=== PATIENT | male | born 1950 | race Caucasian/White ===

== ENCOUNTER 2017-02-05 11:30 | Day surgery (SDC) | payer OTHER ==
[~2017-02-05] VITALS: Ht 167.6 cm; Wt 71.8 kg
[~2017-02-05 11:30] MED LIST: BENA20TA48 PO
[2017-02-05] MEDS ORDERED: BENAZEPRIL (12:38)
[2017-02-05] MEDS ORDERED: ASPIRIN (12:38)
[2017-02-05] MEDS ORDERED: MIDAZOLAM 1 MG/ML 2 ML INJ ONE ×3 (14:49)
[2017-02-05] MEDS ORDERED: FENTAnyl 50 MCG/ML VIAL ONE (14:49)
[2017-02-05 15:00] VITALS: BP 145/80; RESP 12
--- NOTE | 2017-02-05 16:38 | GILP ---
DATE OF PROCEDURE: 02/05/2017 PROCEDURE PERFORMED: Colonoscopy and polypectomy. SURGEON: Darlyn Sandoval MD. PREOPERATIVE DIAGNOSIS: Positive occult blood in stool. POSTOP DIAGNOSES: 1. Colonoscopy all the way to the cecum. 2. Extensive diverticulosis of the sigmoid colon with adhesions from previous surgery. 3. Sigmoid polyp at 30 cm from the anus was removed using the snare and electrocautery. 4. Another sigmoid polyp at 40 cm from the anus was removed using the biopsy forceps. 5. Internal hemorrhoids. INDICATION: Mr. Nicholas Waller is a 66-year-old male patient was noted to have positive occult blood in stool. The patient was scheduled for colonoscopy for further evaluation. The procedure and possible complications were well explained to the patient. The patient understood and consented to the procedure. DESCRIPTION OF PROCEDURE: Under the influence of fentanyl and Versed, the colonoscope was carefully introduced in the rectum, and under direct vision, it was advanced all the way to the cecum. Findings: The patient had extensive diverticulosis of sigmoid colon. He also had adhesions from previous surgery. He had 2 sigmoid colon polyps, and one of them was removed using the biopsy forceps, and the other one, at 30 cm from the anus, was removed using the snare and electrocautery. The patient was noted to have internal hemorrhoids. He tolerated the procedure very well. There were no complications from the procedure. At the end of procedure, he was awake with stable vital signs. He was discharged home in the care of his family. IMPRESSION: Please see postop diagnoses. PLAN: 1. Await histopathology report. 2. Next screening colonoscopy in 5 years. Dictated By: MD HIEN Goodrich/barb/debbie /Document#: [id number]
== END 2017-02-05 17:38 | disposition home or self-care (01) ==
LOC: GIL 11:30
PROVIDERS: ATTEND Internal Medicine Gastroenterology
DX: R19.4 Change in bowel habit (principal); D12.5 Benign neoplasm of sigmoid colon; K57.90 Diverticulosis of intestine, part unspecified, without perforation or abscess without bleeding; K64.8 Other hemorrhoids; I10 Essential (primary) hypertension
CPT/HCPCS: 45380; 45385; 88305; J2250; J3010; Z7610

== ENCOUNTER 2018-09-26 11:40 | Emergency (ER) | payer MEDICARE, OTHER ==
[~2018-09-26] VITALS: Ht 172.7 cm; Wt 73.2 kg
[~2018-09-26 11:40] MED LIST changes: +ASPIRIN; +BENA20TA4 PO; -BENA20TA48 PO; +BENAZEPRIL
[2018-09-26 11:54] VITALS: BP 130/71; PULSE 78; RESP 18; Ht 172.7 cm; Wt 73.2 kg
--- NOTE | 2018-09-26 14:50 | ERD ---
ER Documentation Chief Complaint Chief Complaint left facial swelling today HPI 68-year-old male, previously healthy, presents the emergency department, complaining of acute onset of painless left facial edema. The patient denies fevers, no chills, no ear pain, no sore throat. The patient states that he was pressing his neck really hard on the left side when he had one episode of near fainting this morning. No chest pain, no palpitations, no shortness of breath. ROS All systems reviewed and are negative except as per history of present illness. Medications Home Meds Active Scripts Ibuprofen* (Motrin*) 400 Mg Tab, 400 MG PO Q8, #15 TAB Prov:VICKI JARRELL MD 09/26/18 Amoxicillin* (Amoxicillin*) 500 Mg Cap, 500 MG PO TID for 7 Days, CAP Prov:VICKI JARRELL MD 09/26/18 Reported Medications [Aspirin] No Conflict Check 02/05/17 [Benazepril] No Conflict Check 02/05/17 Benazepril Hcl* (Benazepril Hcl*) 20 Mg Tablet, 20 MG PO DAILY, TAB 06/14/15 Allergies Allergies: Coded Allergies: No Known Allergy (Unverified , 06/13/15) PMhx/Soc History of Surgery: Yes (APPENDECTOMY) Anesthesia Reaction: No Hx Neurological Disorder: No Hx Respiratory Disorders: No Hx Cardiac Disorders: Yes (HTN, HIGH CHOLESTEROL) Hx Psychiatric Problems: No Hx Miscellaneous Medical Probl: No Hx Alcohol Use: Yes (OCCATIONAL) Hx Substance Use: No Hx Tobacco Use: No FmHx Family History: diabetes Physical Exam Vitals Vital Signs Date Temp Pulse Resp B/P (MAP) Pulse Ox O2 O2 Flow FiO2 Time Delivery Rate 09/26/18 97.5 78 18 130/71 98 11:54 (90) Physical Exam Const: No acute distress Head: Left parotid gland with edema but no tenderness, erythema, warmth or fluctuance. Eyes: Normal Conjunctiva ENT: Normal External Ears, Nose and Mouth. Neck: Full range of motion. No meningismus. Resp: Clear to auscultation bilaterally Cardio: Regular rate and rhythm, no murmurs Abd: Soft, non tender, non distended. Normal bowel sounds Skin: No petechiae or rashes Back: No midline or flank tenderness Ext: No cyanosis, or edema Neur: Awake and alert Psych: Normal Mood and Affect Results 24 hrs EKG read by me: Rate/Rhythm: Regular rate and rhythm at a rate of 60 Intervals: Normal No acute ST changes. No T wave inversion Impression: No evidence of acute ischemia or arrhythmia Procedures/MDM Differential diagnosis include but not limited to: Tonsillar/pharyngeal infection bacterial/viral/fungal, parotitis, allergies, GERD. Less likely peritonsillar abscess, retropharyngeal abscess. No signs of upper respiratory obstruction Physical examination and clinical presentation consistent most likely with sialoadenitis, in regards of the near syncopal episode, normal electrocardiogr am, most likely symptoms were caused by carotid massage. During the ED course the patient remained stable. Clinical impression discussed with the patient who agrees with management. The patient is stable to be treated outpatient and will be discharged home with a Rx for antibiotic and ibuprofen. Some side effects of prescribed medications (headache, rash, nausea, vomiting, diarrhea, drowsiness, habituation, bleeding, hypertension, interactions with other medications) were reviewed. The patient was instructed to follow up with the primary care provider in the next 48h. If symptoms persist, worsen or new symptoms develop, then patient should return to the ED immediately. Disclaimer: Inadvertent spelling and grammatical errors are likely due to EHR/dictation software use and do not reflect on the overall quality of patient care. Also, please note that the electronic time recorded on this note does not necessarily reflect the actual time of the patient encounter. Departure Diagnosis: Primary Impression: Sialadenitis Additional Impression: Vasovagal episode Condition: Stable Additional Instructions: Muchas richar por [facility] para couch servicio. Esperamos que en couch visita a la eric de emergencia couch problema medico haya sido solucionado y que se sienta mucho mejor. Para estar seguros que couch mejoria sigue en proceso, le pedimos el favor de hacer elsa rachael de seguimiento medico con couch doctor primario en los proximos 2-4 ojeda. Lleve con usted estos documentos y las medicinas recetadas. Si leeann sintomas empeoran, NO SE ESPERE, por favor regrese a eric de emergencia INMEDIATAMENTE. En sagrario que usted no tenga un mdico de atencin primaria: Llame al mdico o clnica comunitaria de referencia que aparece abajo chidi las horas de consultorio para hacer elsa rachael para que le vean. CLINICAS: [facility] [phone] [facility] [phone] [facility] [phone] [facility] [phone] [place] [id number] [phone] [facility] [phone] VICKI RAO MD Sep 26, 2018 14:50
[2018-09-26] MEDS ORDERED: IBUP-1561 PO (15:02)
[2018-09-26] MEDS ORDERED: AMOX500C2 PO (15:02)
== END 2018-09-26 16:21 | disposition home or self-care (01) ==
LOC: FTE 11:40
DX: K11.20 Sialoadenitis, unspecified (principal); R55 Syncope and collapse; I10 Essential (primary) hypertension; Z79.82 Long term (current) use of aspirin
CPT/HCPCS: 93005